=== PATIENT | female | born 1950 | race Caucasian/White ===

== ENCOUNTER → 2024-05-08 | Outpatient (CLI) | payer MEDICARE, OTHER, SELFPAY ==
--- NOTE | 2024-05-08 13:44 | CT_ITS ---
PROCEDURE: CT RIGHT KNEE WITHOUT CONTRAST REASON FOR EXAM: Female, 73 years old. Preoperative planning for the MakoPlasty Robotic knee surgery. Knee pain. TECHNIQUE: Transaxial CT of the hip, knee and ankle were obtained. Coronal and sagittal reconstruction images of the knee were provided. Individualized dose optimization techniques were used for this CT. COMPARISON: None. FINDINGS: Standard protocol for the preoperative planning for the MakoPlasty robotic knee surgery was performed. Mild arthrosis of the right hip, moderate tricompartmental arthrosis of the knee and mild arthrosis of the tibiotalar joint. Superior and inferior calcaneal spurs.. CT/Extremity Lower without Contra IMPRESSION: Preoperative MakoPlasty Robotic knee surgical CT evaluation with findings as described above. Electronically Signed: Napoleon Swanson MD at 9:58 EDT ,
== END | disposition home or self-care (01) ==
LOC: CT 13:42
PROVIDERS: PCP Family Medicine; Referring Provider Orthopaedic Surgery; Visit Provider Orthopaedic Surgery
DX: M17.11 Unilateral primary osteoarthritis, right knee (principal)
CPT/HCPCS: 73700

== ENCOUNTER 2024-05-20 05:59 | Day surgery (SDC) | payer MEDICARE, OTHER, SELFPAY ==
[2024-05-12 10:41] LABS: Magnesium 2.1 mg/dL (1.6-2.6)
[2024-05-12 10:43] LABS: International Normalized Ratio 1.1; Prothrombin Time (Protime)PT. 13.9 SECONDS (11.7-14.9)
[2024-05-12 10:44] LABS: Partial Thromboplast Time 26.1 Seconds (24.1-36.2)
[2024-05-13 05:07] LABS: Fructosamine 216 umol/L (0-285)
[2024-05-20] VITALS (11 sets, daily range): BP systolic 90–167; BP diastolic 36–69; PULSE 72–83; RESP 14–16; TEMP 36.6–37.1; O2SAT 96–100; BMI 30.4
[2024-05-20] MEDS: Acetaminophen 500 MG Tablet 1000 MG PO (06:45)
[2024-05-20] MEDS: Scopolamine 1mg/72hr Patch 1 PATCH TD (06:46)
[2024-05-20] MEDS: Celecoxib 200 MG Capsule 400 MG PO (06:46)
[2024-05-20] MEDS: Gabapentin 600 MG Tablet PO (06:46)
[2024-05-20] MEDS: Lactated Ringers 1,000 ML 15 ML IV (06:46)
[2024-05-20] MEDS: Magnesium 1 GM over 15 mins IV (06:51)
[2024-05-20 06:54] LABS: Bedside Glucose 118 mg/dL (74-106)
--- NOTE | 2024-05-20 07:25 | HP.PCM_ITS ---
History and Physical Date of Admission: 05/20/24 [facility] [address] [place] [address] OFFICE VISIT Date of Service: 04/30/24 MR#: [id number] Acct: [id number] Name: PAUL VIVAS Rep #: [id number] : 1950 Provider: Dr. Mark Anthony Montoya DO Age/Sex: 73/F Location: [facility] [place].JUSTINE Status: Signed Intake Vital Signs 02/12/2411:05 Height 5 ft 3 in Weight: 171 lb BMI 30.2 Intake Visit Reasons: right knee Accompanied by: Self Is patient in pain?: Yes Allergies Penicillins Allergy (Verified 04/30/24 10:40) Itching Medications ?Medication ?Instructions ?Recorded ?Confirmed ?Type atorvastatin 80 mg tablet mg PO 02/13/24 04/30/24 History brompheniramine maleate 4 mg mg PO 02/13/24 04/30/24 History capsule cetirizine 10 mg capsule (Zyrtec) 10 mg PO DAILY PRN 02/13/24 04/30/24 History clonazepam 0.5 mg tablet 0.5 mg PO QDAY 02/13/24 04/30/24 History coenzyme Q10 75 mg capsule (Ultra 50 mg PO DAILY 02/13/24 04/30/24 History CoQ10) diphenhydramine HCl 25 mg capsule 25 mg PO QHS PRN 02/13/24 04/30/24 History (Benadryl) fluoxetine 20 mg capsule 40 mg PO QAM 02/13/24 04/30/24 History guselkumab 100 mg/mL subcutaneous 100 mg subcut Q4W 02/13/24 04/30/24 History syringe (Tremfya) hydrochlorothiazide 25 mg tablet 25 mg PO QDAY 02/13/24 04/30/24 History lisinopril 10 mg tablet 10 mg PO QDAY 02/13/24 04/30/24 History mecobalamin (vitamin B12) 2,500 mcg PO 02/13/24 04/30/24 History mcg chewable tablet meloxicam 15 mg tablet 15 mg PO QDAY 02/13/24 04/30/24 History omeprazole 20 mg capsule,delayed 20 mg PO QDAY 02/13/24 04/30/24 History release potassium chloride 10 mEq 10 meq PO QDAY 02/13/24 04/30/24 History tablet,extended release(part/cryst) tramadol 50 mg tablet 50 mg PO Q4 PRN 04/30/24 04/30/24 History Have you fallen in the past year?: No (not asked. ) [facility] Medical History (Updated 04/30/24 @ 10:48 by Jackie Hernandez) High cholesterol Hypertension Surgical History (Updated 02/13/24 @ 11:14 by Kelle Kline) History of removal of ovarian cyst H/O arthroscopy of left knee Family History (Updated 02/13/24 @ 11:14 by Kelle Kline) Mother CVA (cerebral vascular accident)Father CVA (cerebral vascular accident) Social History (Updated 02/13/24 @ 11:15 by Kelle Kline) Smoking Status: Current every day smoker tobacco type: e-cigarettes alcohol intake: current alcohol intake frequency: holidays/special occasions only HPI right knee Details: This documentation accurately reflects the service provided and the decisions made by me, Dr. Mark Anthony Montoya, DO 04/30/24 0754. Part of today?s visit was documented by Jackie Flores, acting as scribe. PAUL VIVAS is a 73 year old F here today for follow-up on her right knee To recall last office visit 02/13/2024: Patient had x-rays which demonstrated significant knee arthrosis she was [id number] on the medial side of her knee we discussed options and patient wished to proceed with a steroid injection and meloxicam for 2 weeks. She continues to suffer with her knee arthritis that is very painful and affecting her quality of life. She states that the injection she had on 02/13/24 which was helpful for about 2 weeks. She states that her pain is worse at night and she has difficulty sleeping. She states that she was given tramadol for pain which was not helpful. She also takes meloxicam. Patient complains of pain over her medial knee and anterior knee. Patient has difficulty ambulating stairs. She would like to discuss the next steps. She has tried icing and heat. Ortho Exam General General: Yes no acute distress and Yes well groomed Neurologic: Yes alert and Yes oriented x3 Psychologic: Yes reasonable and appropriate Right Knee Skin/Wound: Yes CDI, No erythema, No ecchymosis and No swelling Knee ROM: Yes ROM-Extension -20 to 0 (-15) and Yes ROM-Flexion 0-140 (92) Examination: Yes Med jt line tenderness, No Pain with flexion, No Pain with ext ention, Yes TTP Pes Anserine and No Illiotibial band tenderness Stability: NML: Anterior Drawer, NML: Posterior Drawer, NML: Valgus 30 and NML: Varus 30 Patella Grind: No KNEE: small bakers cyst 1cm Head: Normocephalic Atraumatic Chest: symmetrical rise, non-labored breathing, no audible wheeze Abdomen: no guarding, non-rigid Supplemental Info 02/13/2024 x-ray right knee: Advanced medial compartment arthrosis with varus deformity moderate patellofemoral arthrosis and mild Coding Level of Care Code Off vis,est,level 4 Diagnoses Primary osteoarthritis of right knee M17.11 Osteoarthritis type: primary Assessment and Plan Assessment and Plan (1) Osteoarthritis of right knee: Status: Acute Qualifiers: Osteoarthritis type: primary Qualified Code(s): M17.11 - Unilateral primary osteoarthritis, right knee Orders: Orders Extremity Lower without Contra Today M17.11 - Unilateral primary osteoarthritis, right knee Plan Spoke with the patient about her options and she continues to have pain after conservative treatment. Patient wanted to proceed with a total knee arthroplasty. Spoke with the patient about the iovera procedure. Risks, benefits and alternatives of surgery reviewed including but not limited to bleeding, infe ction, nerve, artery and/or tissue damage, fracture, VTE, mechanical feel of the knee, continued pain, stiffness and expected post-operative course. Explained that she is at an increased risk of stiffness post op due to her preop stiffness. She might have a mechanical feel to her knee. Patient will have a spot of numbness over her lateral knee. We will need PCP clearance by Dr Marti. She will need a CT scan for makoplasty. Spoke with the patient about the increased risk of doing bilateral total knee arthroplasty. She will need to have an evaluation on her left knee prior to discussion of treatment for that knee. Patient should minimize the tramadol preoperatively as it is a narcotic and the more narcotic she takes preoperatively the less effective will be postoperatively. Tentative surgery date May 20, 2024 same-day surgery. Follow up FOR IOVERA or sooner if pain, swelling, numbness or associated symptoms, or concerns develop. All questions answered. Patient in agreement of plan. Clinical Quality Measures Falls Risk Screening/Assistive Devices Have you fallen in the past year?: No (not asked. ) 04/30/24 1120 <Electronically signed by Mark Anthony Montoya DO> Date Mark Anthony Montoya DO I have examined the patient and the H&P has been reviewed. There are no clinical changes since date of exam.
--- NOTE | 2024-05-20 07:53 | PRE.ANES_ITS ---
ASA Classification* ASA Classification ASA Classification: 2 Assessment & Plan Anesthesia* Anesthesia Assessment Anesthesia Assessment: Discussed sedation and/or anesthesia options, risks, benefits, and alternatives with patient/parents/legal guardian/POA. Questions invited. The patient/parents/legal guardian/POA seems to understand and agrees to proceed with anesthesia plan. Reviewed the physical assessment, medical history, allergy history and patient home medications list prior to surgery/procedure/anesthetic and documented any changes. Performed airway and anesthesia risk assessments. Anesthesia Type Anesthesia Type: Spinal (Consented for pain block adductor canal) Anesthesia Focused Assessment* Temperature: 98.2 F Pulse Rate: 78 Blood Pressure: 126/69 Respiratory Rate: 14 Pulse Ox: 98 Airway Assessment Mouth opens: >3 cm Mallampati Score: II Focused Labs Anesthesia Preop lab: CHEMISTRY Magnesium 2.1 mg/dL (1.6-2.6) 05/12/24 09:54 POC Glucose 118 mg/dL (74-106) H 05/20/24 06:37 COAG PT 13.9 SECONDS (11.7-14.9) 05/12/24 09:56 Pre-Assessment Diagnosis/Proposed Procedure Planned Operative Procedure(s): RIGHT TOTAL KNEE ARTHROPLASTY Anesthesia History Anesthesia History - social work assistant: Anesthesia History - social work assistant Hx Hospitalization No 05/09/24 13:19 Any Problems With Anesthesia No 05/09/24 13:19 Cholinesterase deficiency No 05/09/24 13:19 You/Your Family Experience No 05/09/24 13:19 fever (hyperthermia) with Relationship Recent Exposure to Contagious Disease Does patient have nerve No 05/09/24 13:19 stimulator Patient instructed to have device shut off --Does patient have Pacemaker No 05/20/24 07:19 or ICD? When Was Last Pacemaker Check QUESTION #4 FULL TEXT: You/Your Family Experience fever (hyperthermia) with Anesthesia Last Oral Intake Last Oral intake: Last Oral Intake NPO since 04:00 05/20/24 07:19 Meds taken in AM with sips of Yes 05/20/24 07:19 water? Meds patient instructed to lisinipril 05/20/24 07:19 take am of surgery prozac potassium PONV PONV - social work assistant: PONV - social work assistant Female Yes 05/09/24 13:19 HX of Motion Sickness Yes 05/09/24 13:19 HX of N/V After Surgery No 05/09/24 13:19 Non-Smoker No 05/09/24 13:19 Duration of Surgery greater Yes 05/09/24 13:19 than 60 minutes Number of Risk Factors 3 05/09/24 13:19 PONV Score Moderate Risk 05/09/24 13:19 Height & Weight Height & Weight: Anesthesia: Height & Weight Height 5 ft 3 in 05/20/24 07:19 Weight: 78.1 kg 05/20/24 07:19 Body Mass Index (BMI) 30.4 05/20/24 07:19 Respiratory Assessment Respiratory Assessment - social work assistant: Respiratory Tract Infection Hx - social work assistant Hx Respiratory Tract Infection No 05/09/24 13:19 STOP Sleep Apnea STOP Sleep Apnea - social work assistant: STOP Sleep Apnea - social work assistant Hx Hypertension Yes: CONTROLLED WITH MED 05/09/24 13:19 Hx Sleep Apnea No 05/09/24 13:19 CPAP BIPAP Do you snore loudly (louder Yes 05/09/24 13:19 than talking or can be heard Do you often feel tired/ Yes 05/09/24 13:19 fatigued/ sleepy during daytime? Has anyone observed you stop No 05/09/24 13:19 breathing during sleep? STOP Results Positive 05/09/24 13:19 QUESTION #5 FULL TEXT : Do you snore loudly (louder than talking or can be heard through closed doors)? Tobacco Use History Tobacco Use History - social work assistant: Tobacco Use History - social work assistant Tobacco Use Smoking Status Current every day smoker 05/09/24 13:19 Hx Tobacco Use Yes: VAPES 05/09/24 13:19 Years Smoking Packs Smoked per Day Smoking Cessation Date was within the last 15 years Hx Smoking Cessation Date Hx Smoking Cessation Counseling Hematologic Medial History Hematologic Hx - social work assistant: Hematologic Medical Hx - bonding molder Hx of Blood Transfusion No 05/09/24 13:19 Hx of Transfusion in last 3 No 05/09/24 13:19 Months Date of Last Transfusion (if within last 3 months) Ever experience any problems No 05/09/24 13:19 with transfusion(s)? Specify any problems Hx of Preganancy in last 3 No 05/09/24 13:19 Months Nurse Filling Out Transfusion DSCHRIBER 05/09/24 13:19 & Questions: Date: 05/09/24 05/09/24 13:19 Time: 13:21 05/09/24 13:19 Patient unable to answer at this time (ie. confused, unrespo /Reproduction History /Reproductive History - social work assistant: /Reproductive Hx- social work assistant Hx Now No 05/09/24 13:19 Gestational Age (in weeks): EDC: Hx Hx Para Hx Section SAB No 05/09/24 13:19 Active Medications Active Medications: Current Medications Generic Name Dose Route Start Last Admin Trade Name Freq PRN Reason Stop Dose Admin Acetaminophen 1,000 mg 05/20/24 08:45 05/20/24 06:45 Acetaminophen 500 Mg Tablet PO 05/20/24 08:46 1,000 mg X1 ONE Administration Celecoxib 400 mg 05/20/24 08:45 05/20/24 06:46 Celecoxib 200 Mg Capsule PO 05/20/24 08:46 400 mg X1 ONE Administration Dexamethasone Sodium Phosphate 10 mg 05/20/24 08:45 Dexamethasone 10 Mg/Ml Vial IV 05/20/24 08:46 X1 ONE Gabapentin 600 mg 05/20/24 08:45 05/20/24 06:46 Gabapentin 600 Mg Tablet PO 05/20/24 08:46 600 mg X1 ONE Administration Cefazolin Sodium 2 gm/ Sodium 110 mls @ 150 mls/hr 05/20/24 08:45 Chloride IV 05/20/24 09:28 PREOP ONE Tranexamic Acid 1,000 mg/ 110 mls @ 660 mls/hr 05/20/24 08:45 Sodium Chloride IV 05/20/24 08:54 X1 ONE Tranexamic Acid 1,000 mg/ 110 mls @ 660 mls/hr 05/20/24 08:45 Sodium Chloride IV 05/20/24 08:54 X1 ONE Lactated Ringer's 1,000 mls @ 125 mls/hr 05/20/24 08:45 IV 05/20/24 16:44 .Q8H YOLY Magnesium Sulfate 1 gm/ 102 mls @ 408 mls/hr 05/20/24 08:45 05/20/24 06:51 Dextrose IV 05/20/24 08:59 408 mls/hr X1 ONE Administration Lactated Ringer's 1,000 mls @ 15 mls/hr 05/20/24 06:15 05/20/24 06:46 IV 15 mls/hr .Q48H YOLY Administration Insulin Human Lispro 1 - 6 unit 05/20/24 08:45 Insulin Lispro 100 Unit/Ml Insuln.Pen SC Q4H PRN PRN BG>/= 180, SEE PROTOCOL Protocol Scopolamine HBr 1 patch 05/20/24 08:45 05/20/24 06:46 Scopolamine 1mg/72hr Patch TD 05/20/24 08:46 1 patch X1 ONE Administration PFSH Medical History Wears glasses Depression Anxiety Alcohol use Dermatitis Psoriasis History of steroid therapy Arthritis Injury of back Back pain Gastric reflux Vapes nicotine containing substance Leg cramps History of pain when walking High cholesterol Hypertension Home Medications ?Medication ?Instructions ?Recorded ?Last Taken ?Type atorvastatin 80 mg tablet 40 mg PO QHS 02/13/24 05/19/24 History cetirizine 10 mg capsule (Zyrtec) 10 mg PO DAILY PRN allergy symptoms 02/13/24 05/19/24 History clonazepam 0.5 mg tablet 0.25 mg PO BID 02/13/24 05/19/24 History coenzyme Q10 75 mg capsule (Ultra 50 mg PO DAILY 02/13/24 05/19/24 History CoQ10) diphenhydramine HCl 25 mg capsule 25 mg PO QHS PRN allergy symptoms 02/13/24 05/19/24 History (Benadryl) fluoxetine 20 mg capsule 40 mg PO QODAY 02/13/24 05/20/24 History guselkumab 100 mg/mL subcutaneous 100 mg subcut .Q8W 02/13/24 03/29/24 History syringe (Tremfya) hydrochlorothiazide 25 mg tablet 25 mg PO QDAY 02/13/24 05/19/24 History lisinopril 10 mg tablet 10 mg PO QDAY 02/13/24 05/20/24 History mecobalamin (vitamin B12) 2,500 2,500 mcg PO DAILY 02/13/24 05/19/24 History mcg chewable tablet omeprazole 20 mg capsule,delayed 20 mg PO QHS 02/13/24 05/19/24 History release potassium chloride 10 mEq 10 meq PO QDAY 02/13/24 05/20/24 History tablet,extended release(part/cryst) PLEXUS PROBIO5 2 cap PO DAILY 05/09/24 05/19/24 History xjwcicy-ksgohpuoc-zwlmlh-FOD-hybdd-lfqf-150hb 2 tab PO DAILY 05/09/24 05/19/24 History 250 mg-250 mg-120 mg tab fluoxetine 20 mg capsule 20 mg PO QODAY 05/09/24 Unknown History Allergy/AdvReac Type Severity Reaction Status Date / Time Penicillins Allergy Itching Verified 05/09/24 13:04 Family History Mother CVA (cerebral vascular accident) Father CVA (cerebral vascular accident) Surgical History History of esophagogastroduodenoscopy (EGD) Hx of colonoscopy History of loop electrical excision procedure (LEEP) History of removal of ovarian cyst H/O arthroscopy of left knee Social History Smoking Status: Current every day smoker tobacco type: e-cigarettes alcohol intake: current alcohol intake frequency: holidays/special occasions only Review of Systems (Anesthesia) ROS Narrative System reviewed and no additional complaints, except as documented.
[2024-05-20] MEDS: Cefazolin 2 GM in 0.9% Normal Saline (100mL Bag) 100 ML IV ×2 (08:10→13:10)
--- NOTE | 2024-05-20 08:15 | KNEE_PTH ---
PATIENT: PAUL VIVAS LOC: [facility] [place] U#:[id number] AGE/SX: 73/F ROOM: RE05/20/[address]: Dr. Mark Anthony Montoya DO : 1950 BED: DIS: 05/20/2024 SPEC #: [id number] RECD: 05/20/24 11:12 STATUS: LEONARDO REDee #: [id number] ANNIE: 05/20/24 08:[address]: Mark Anthony Montoya DEPT: SURGICAL PATHOLOGY RECD BY: Lindsey Emery ENTERED: 05/20/24 12:33 SP TYPE: TOTAL KNEE OTHR DR: Dr. Danish Marti, DO Tissues: Knee, NOS Procedures: Decalcification bone/plaque Surgery Specimen Level IV HEADER OPERATION: Right total knee replacement robotic arm assist PRE-OP DIAGNOSIS: Osteoarthritis of right knee TISSUE SUBMITTED: Right knee bone and tissue MICROSCOPIC DIAGNOSIS Bone and tissue of right knee, total knee resection: Severe degenerative joint disease. AM: 05/23/2024 MICROSCOPIC DESCRIPTION Slides are reviewed. GROSS DESCRIPTION Received is one container designated bone and soft tissue right knee. The specimen consists of multiple fragments of delgado-yellow bone measuring in aggregate 7.5 x 9.0 x 3.0 cm. No soft tissue is identified. A number of bony fragments contain articular surfaces consistent with tibial plateau and femoral condyle and displaying prominent osteophyte formation, eburnation and bone erosion. Frog Farmer sections are submitted in one cassette after decalcification. ALIYA/ 05/20/2024 TC:5 CPT: 01894, 92919
[2024-05-20] MEDS: TXA 1000mg in NS100 100ml (IVPB at Incision) 660 MG IV (08:20)
[2024-05-20] MEDS: dexAMETHasone 10 MG/ML Vial IV (08:20)
[2024-05-20] MEDS: TXA 1000mg in NS100 100ml (IVPB at Closure) 660 MG IV (08:31)
[2024-05-20] MEDS: 0.9% Normal Saline (Pres. free 10 ML Vial (08:55)
[2024-05-20] MEDS: dexAMETHasone 4 MG/ML Vial (08:57)
[2024-05-20] MEDS: Epinephrine (1 mg/ml) 1 MG/ML VIAL (08:57)
--- NOTE | 2024-05-20 10:31 | OP.PCM_ITS ---
Operative Report Date of Procedure: 05/20/24 Preoperative diagnosis: Right knee DJD with varus deformity and flexion contracture 19 degrees Postoperative diagnosis: Same Procedure: Right total knee arthroplasty CT guided Robotic Assisted Implant: [place] triathlon press fit, femoral component size 4, tibial baseplate size 2, asymmetric patella size 32, polyethylene X3 size 9 CS Anesthesia: Spinal with adductor canal block Tourniquet: 300 mmHg Complications: None Condition: Stable to PACU Estimated blood loss: 175 cc Store Clerk Jann Fernandez. My physician credit control assistant was a vital part of this case. He was important in appropriate retraction during the case, and protection of soft tissues during procedure. His intimate knowledge of the case and my steps aided in safe and expedient completion of the procedure as well as appropriate position of the extremity during the case. He was also vital in assisting with closure under my direct supervision. Indication for procedure: This is a 73-year-old female with long standing degenerative joint disease of the knee who has failed conservative treatment and wished to proceed with elective total knee arthroplasty. Risk benefits and alternatives were reviewed including; risk of bleeding, infection, nerve artery and tissue damage, continued pain, postoperative stiffness, venous thromboembolism, need for postoperative rehabilitation, mechanical feel to the knee, and expected postoperative course. The pre- operative CT and templating was performed with component sizing. Procedure: The patient was met in the preoperative holding area. The operative extremity was identified by both patient and physician and was marked. Patient was met by anesthesia. An adductor canal block was placed by anesthesia postoperatively the patient was brought back to the operating room on a wheeled cart and transferred to the operating table in the supine position. Anesthesia was started. A well-padded tourniquet was placed on the operative extremity. The patient was prepped and draped in the usual sterile fashion. A timeout was called to ensure the proper patient procedure and extremity were being contemplated. An esmarch was used to exsanguinate the extremity. The tourniquet was inflated. A 10 blade scalpel was used to make a midline incision down through the skin and subcutaneous tissue. Skin retractors placed. Bovie and Aquamantis were used to perform meticulous hemostasis. full-thickness flaps were elevated medial and lateral along the joint capsule. A deep blade scalpel was used to perform a medial parapatellar arthrotomy. The knee was brought to full extension. A bovie was used to release the soft tissues off the most proximal aspect of the medial tibial plateau, a three-quarter inch curved osteotome was also used in this process. The infrapatellar fat pad was excised. The suprapatellar fat pad was excised partially anteriorolateraly and portion the anterioromedial pad was elevated from the femur. At this point our intra- articular femoral array was placed at a 45 degree angle proximal and posterior to the medial epicondyle. femoral checkpoint was placed at this time. Our tibial array was placed partially intra incisional 1 stab incision was made just distal to the main incision a 15 blade scalpel and pins were placed and attached to the tibial array , tibial checkpoint was placed in the proximal tibial metaphysis. Tourniquet was let down. At this point registration dow were taken throughout the knee . Once the knee was registered we then tensioned the medial and lateral ligaments in extension and 90 degrees of flexion. We then used these numbers to adjust our components within parameters to balance the knee in both flexion and extension once this was done on our monitor we then proceeded with using the robotic arm to make our tibial plateau cut, anterior and posterior chamfer and distal femur cuts. we removed the cut fragments with the use of a bovie and Debo, we did use a lamina supervisor trust accounts to insure we visualized and removed all posterior osteophytes and at this time also used the Aquamantis on the posterior joint capsule. we then trialed and achieved the desired plan with a well-balanced knee. we used the green probe to cathy the corresponding tibial rotation based on our CT template. Lug holes were drilled in the femur the tibia preparation was completed with the appropriate sized base plate pinned based on previous rotation cathy. An appropriate sized fin punch was used on the tibia and 4 corner drill was used for the press fit component and the patella was prepared by first using a caliper to ensure sufficient bone stock and a patellar reamer to remove the desired amount of bone. lug holes drilled for an asymmetric poly. We then brought the knee through range of motion with excellent patellar tracking. We thoroughly irrigated the knee. Trial components were removed a posterior capsular injection was preformed with our standard cocktail. In addition the aqua Mantis was also used to aid in hemostasis. Betadine rinse was allowed to sit and washed out completely. Components were press-fit into place. Aricept rinse was then used followed by several more liters of irrigation after it was allowed to sit. The joint capsule was closed with #1 Ethibond lewquv-mt-wfhrw's in the upper part of the arthrotomy and #1 Vicryl in the lower part of the arthrotomy. , Followed by 2-0 Vicryl in the subcutaneous tissues with karyna in the skin. Arrays and checkpoints were removed prior to closure all counts were correct stab incisions were closed with a staple standard dressing in the form of Mepilex AG for the main incision and a small Mepilex over the pin holes. Thigh-high KRYSTAL hose applied over top of dressing. Patient tolerated the procedure well and was directed to PACU in stable condition . There were no intraoperative complications.
--- NOTE | 2024-05-20 10:34 | DCINST_ITS ---
Discharge Instructions Diet Discharge Diet: No restrictions Dressing / Incision Call your doctor if you observe: Shortness of breath and Chest pain Additional Dressing/Incision Instructions:: Ice and elevate lower extremities 2 weeks while not ambulating. Ambulation is encouraged. Weight bearing as tolerated. Use assistive devise for stability. Encourage FULL knee extension and flexion 1 time EVERY time you get up and down and MULTIPLE times per day. No showering until 72 hours after surgery. Begin showering postop day #3. Remove the dressing prior to shower and gently wash with warm water and antibacterial soap then pat dry and place abdominal pad (or plain gauze) and KRYSTAL hose over top. This is to be done daily. Do not submerge for 3 weeks. If not showering daily after the initial 72 hours then you must clean incision and change dressing daily. Do not allow animals near the incision area. Keep clean. Follow anti-coagulation recommendations as prescribed. Do not take any NSAIDs while on blood thinner. Do not take any additional narcotic pain medication other than what was prescribed on your surgery day without discussing with physician. Narcotic medication can be addictive. Do not drink alcohol while taking narcotics. Supplement narcotic prescription with acetaminophen 1000 mg 4 times a day. Start physical therapy. If you are not currently scheduled for physical therapy or you are unsure of appointment time please call office [facility] to arrange. Call Dr. Montoya with any concerns. Follow Up Care Please Follow Up With: Mark Anthony Montoya DO When: 2 weeks Test Results: Test results from this visit will be discussed in further detail at your follow- up appointment, if applicable. Discharge Plan Admission Primary Reason for Your Visit: Right total knee arthroplasty Attending Provider: Mark Anthony Montoay Primary Care Provider: Danish Marti Instructions Print Language: Singaporean Discharge Orders/Prescriptions Prescriptions: New acetaminophen 500 mg tablet 1,000 mg PO Q6H PRN (Reason: pain) Qty: 100 0RF cephalexin 500 mg capsule 1,000 mg PO Q8H Qty: 4 0RF Rx Instructions: Take 2 tabs before you go to bed and 2 tabs after 5 AM morning after surgery when you wake up oxycodone 5 mg tablet 5 - 10 mg PO Q6H PRN (Reason: pain) 7 Days Qty: 60 0RF Eliquis 2.5 mg tablet 2.5 mg PO BID Qty: 30 0RF Rx Instructions: Begin morning after surgery. Continued clonazepam 0.5 mg tablet 0.25 mg PO BID fluoxetine 20 mg capsule 40 mg PO QODAY hydrochlorothiazide 25 mg tablet 25 mg PO QDAY lisinopril 10 mg tablet 10 mg PO QDAY omeprazole 20 mg capsule,delayed release(DR/EC) 20 mg PO QHS potassium chloride 10 mEq tablet,ER particles/crystals 10 meq PO QDAY atorvastatin 80 mg tablet 40 mg PO QHS Ultra CoQ10 75 mg capsule 50 mg PO DAILY Zyrtec 10 mg capsule 10 mg PO DAILY PRN (Reason: allergy symptoms) diphenhydramine HCl [Benadryl] 25 mg capsule 25 mg PO QHS PRN (Reason: allergy symptoms) mecobalamin (vitamin B12) 2,500 mcg tablet,chewable 2,500 mcg PO DAILY fluoxetine 20 mg capsule 20 mg PO QODAY PLEXUS PROBIO5 2 cap PO DAILY [id number] 250-250-120 mg tablet 2 tab PO DAILY Held Tremfya 100 mg/mL syringe 100 mg subcut .Q8W Hold Instructions: Resume on 06/10/24. Disposition Disposition (needs filled in before D/C Order can be placed): Home, Self Care
--- NOTE | 2024-05-20 11:00 | RAD_ITS ---
STUDY: X-RAY - RIGHT KNEE REASON FOR EXAM: Female, 73 years old. Post op pacu -- in PACU TECHNIQUE: 2 views of the right knee. COMPARISON: Right knee radiographs dated 02/13/2024. FINDINGS: There are new postoperative changes related to right total knee arthroplasty with patellar resurfacing. There is a vertical staple line along the anterior aspect of the knee. There is gas in the patellofemoral joint recess and anterior soft tissues, compatible with recent surgery. The orthopedic hardware components are intact. There is no periprosthetic fracture. Normal proximal tibiofibular articulation. RAD/Knee 1 or 2 Views IMPRESSION: New postoperative changes related to right total knee arthroplasty. Electronically Signed: Reza Clark MD at 11:48 EDT ,
--- NOTE | 2024-05-20 11:01 | PCM.POST.ANE ---
Anesthesia: Postop Eval I Current Vital Signs Temperature: 98.7 F Pulse Rate: 73 Blood Pressure: 107/56 Respiratory Rate: 14 Pulse Ox: 96 Oxygen Delivery Method: Room Air Assessment Airway patent: Yes Spontaneous unlabored respirations: Yes Mental status: Awake and Calm nausea: No Vomiting: No Anesthesia Complication: No Fluid Hydration Crystalloid volume administer (ml): 1,800 Total IV fluid infused: 1,800 Progress Note Anesthesia document: Postop Eval 1 completed: Yes
--- NOTE | 2024-05-20 12:28 | POSTOPAN2_ITS ---
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 Spontaneous unlabored Yes 05/20/24 11:02 DOOR [email or web address] [email or web address] respirations Mental status Awake,Calm 05/20/24 11:02 DOOR [email or web address] nausea No 05/20/24 11:02 DOOR [email or web address] Vomiting No 05/20/24 11:02 DOOR [email or web address] Anesthesia Postop Eval I: Fluid Summary Crystalloid volume administer 1,800 05/20/24 11:02 DOOR [email or web address] (ml) Colloids volume administered ( ml) Blood Product volume administered (ml) Total IV fluid infused 1,800 05/20/24 11:02 DOOR [email or web address] Anesthesia Postop Eval I: Summary Notes Anesthesia Complication No 05/20/24 11:02 DOOR [email or web address] [email or web address] Anesthesia Complication Comment: Post-operative progress note Anesthesia: Postop Eval II Evaluation Mental status: Awake and Calm Pain Level: 1 nausea: No Vomiting: No Complications Anesthesia Complication: No
--- NOTE | 2024-05-20 12:28 | PCM.POSTANE2 ---
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 [email or web address] Spontaneous unlabored Yes 05/20/24 11:02 PROFESSOR OF [email or web address] respirations Mental status Awake,Calm 05/20/24 11:02 PROFESSOR OF [email or web address] nausea No 05/20/24 11:02 PROFESSOR OF RELIG[employer].[email or web address] Vomiting No 05/20/24 11:02 PROFESSOR OF RELIG[employer].[email or web address] Anesthesia Postop Eval I: Fluid Summary Crystalloid volume administer 1,800 05/20/24 11:02 PROFESSOR OF [email or web address] (ml) Colloids volume administered ( ml) Blood Product volume administered (ml) Total IV fluid infused 1,800 05/20/24 11:02 PROFESSOR OF REL[employer].[email or web address] Anesthesia Postop Eval I: Summary Notes Anesthesia Complication No 05/20/24 11:02 PROFESSOR OF [email or web address].[email or web address] Anesthesia Complication Comment: Post-operative progress note Anesthesia: Postop Eval II Evaluation Mental status: Awake and Calm Pain Level: 1 nausea: No Vomiting: No Complications Anesthesia Complication: No
== END 2024-05-20 14:41 | disposition home or self-care (01) ==
LOC: SDC 06:00 → AC 06:00
PROVIDERS: Anesthesiology; PCP Family Medicine; Referring Provider Orthopaedic Surgery; Visit Provider Orthopaedic Surgery
PROC: 0SRC0JZ Replacement of Right Knee Joint with Synthetic Substitute, Open Approach (ICD-10-PCS; CPT 27447; principal; 2024-05-20 07:45)
DX: M17.11 Unilateral primary osteoarthritis, right knee (principal); E78.00 Pure hypercholesterolemia, unspecified; F17.290 Nicotine dependence, other tobacco product, uncomplicated; I10 Essential (primary) hypertension; F41.9 Anxiety disorder, unspecified; F32.A Depression, unspecified; K21.9 Gastro-esophageal reflux disease without esophagitis; L40.9 Psoriasis, unspecified; Z79.899 Other long term (current) drug therapy
CPT/HCPCS: 27447; S2900; 64447; 01402; 36415; 73560; 82962; 82985; 83735; 85610; 85730; 86850; 86900; 86901; 87077; 87081; 88305; 88311; 97162; C1776; J7120; J2405; J3475; J3490